=== PATIENT | female | born 1985 | race Caucasian/White ===

== ENCOUNTER 2018-03-26 11:53 | Emergency (ER) | payer MEDICAID ==
[~2018-03-26] VITALS: Ht 165.1 cm; Wt 100.0 kg
[~2018-03-26 11:53] MED LIST: CYCL-1 PO; DIPH-423 PO; DIPH25TA89 PO; KEN0.1O; PRED20TA PO; SUMA6VIA19 SQ
[2018-03-26] MEDS ORDERED: normal saline 1000ML IV soln IVB ONE (12:30)
[2018-03-26] MEDS ORDERED: ibuprofen tablet 400 MG TABLET PO ONE (12:30)
[2018-03-26 12:49] LABS: BASOPHILS % (AUTO) 0.7 % (0-1); EOSINOPHILS # (AUTO) 0.1 X10'3 (0-0.9); EOSINOPHILS % (AUTO) 0.9 % (0-6); HEMATOCRIT 41.7 % (35.0-45.0); HEMOGLOBIN 14.5 g/dl (12.0-16.0); LYMPHOCYTES # (AUTO) 1.6 X10'3 (1.1-4.8); MEAN CORPUSCULAR HGB CONC 34.6 % (33.0-36.5); MEAN CORPUSCULAR VOLUME 86.6 FL (78-98); MEAN PLATELET VOLUME 9.2 FL (7.4-10.4); MONOCYTES # (AUTO) 0.4 X10'3 (0-0.9); MONOCYTES % (AUTO) 7.6 % (2-12); NEUTROPHILS # (AUTO) 3.7 X10'3 (1.8-7.7); NEUTROPHILS % (AUTO) 63.8 % (42-75); PLATELET COUNT 211 X10'3 (140-440); RED BLOOD COUNT 4.82 X10'6 (4.20-5.60); RED CELL DISTRIBUTION WIDTH 12.7 % (11.5-14.5); WHITE BLOOD COUNT 5.8 X10'3 (4.5-11.0)
[2018-03-26 13:07] LABS: ALANINE AMINOTRANSFERASE 26 U/L (12-78); ALBUMIN 3.6 G/DL (3.4-5.0); ALBUMIN/GLOBULIN RATIO 1.2 (1.1-1.5); ALKALINE PHOSPHATASE 46 IU/L (46-116); ANION GAP 7 (8-16); ASPARTATE AMINO TRANSFERASE 17 U/L (10-37); BILIRUBIN,TOTAL 0.5 MG/DL (0.1-1.0); BLOOD UREA NITROGEN 12 MG/DL (7-18); BUN/CREATININE RATIO 15.6 (6.6-38.0); CHLORIDE 105 MMOL/L (99-107); CREATININE 0.77 MG/DL (0.40-0.90); GLUCOSE 89 MG/DL (70-104); POTASSIUM 3.9 MMOL/L (3.5-5.1); SODIUM 140 MMOL/L (135-145); TOTAL CARBON DIOXIDE 28.5 MMOL/L (24-32); TOTAL PROTEIN 6.7 G/DL (6.4-8.2); eGFR 87 ML/MIN
[2018-03-26 13:25] LABS: URINE HCG NEGATIVE (NEG)
[2018-03-26 13:28] LABS: CLARITY,URINE CLEAR (Clear); COLOR,URINE YELLOW (Yellow); GLUCOSE, URINE NEGATIVE (Neg); KETONES,URINE NEGATIVE (Neg); LEUKOCYTE ESTERASE ,URINE NEGATIVE (Neg); NITRITES, URINE NEGATIVE (Neg); OCCULT BLOOD,URINE MODERATE (Neg); PH,URINE 6.5 (4.8-8.0); PROTEIN,URINE NEGATIVE (Neg); UROBILINOGEN,URINE 0.2 E.U/dL (0.2-1.0)
[2018-03-26 13:34] LABS: BACTERIA,URINE NONE SEEN /HPF (Neg); MUCUS STRANDS FEW /LPF (Neg); RBC,URINE 0-2 /HPF (0-2); SQUAMOUS EPITHELIAL CELL,UR FEW /LPF (FEW); UA COLLECTION TYPE CLN CATCH MIDSTREAM; WBC,URINE NONE SEEN /HPF (0-4)
[2018-03-26] MEDS ORDERED: MEDR5TAB PO (14:05)
[2018-03-26 14:23] VITALS: BP 126/70
== END 2018-03-26 14:15 | disposition home or self-care (01) ==
LOC: ER 11:54
DX: N94.6 Dysmenorrhea, unspecified (principal); Z90.89 Acquired absence of other organs; Z56.0 Unemployment, unspecified; Z88.0 Allergy status to penicillin; Z79.899 Other long term (current) drug therapy
CPT/HCPCS: 36415; 76856; 80053; 81001; 81025; 85025; 86885; 86900; 86901; 99285; J7030

== ENCOUNTER 2018-04-23 15:59 | Emergency (ER) | payer MEDICAID ==
[~2018-04-23] VITALS: Ht 167.6 cm; Wt 105.2 kg
[~2018-04-23 15:59] MED LIST changes: +MEDR5TAB PO
[2018-04-23 16:30] LABS: BASOPHILS % (AUTO) 0.5 % (0-1); EOSINOPHILS # (AUTO) 0.1 X10'3 (0-0.9); EOSINOPHILS % (AUTO) 0.8 % (0-6); HEMATOCRIT 43.5 % (35.0-45.0); HEMOGLOBIN 15.1 g/dl (12.0-16.0); LYMPHOCYTES # (AUTO) 1.9 X10'3 (1.1-4.8); LYMPHOCYTES % (AUTO) 26.7 % (21-51); MEAN CORPUSCULAR HEMOGLOBIN 30.1 PG (27.0-31.0); MEAN CORPUSCULAR HGB CONC 34.7 % (33.0-36.5); MEAN CORPUSCULAR VOLUME 86.8 FL (78-98); MEAN PLATELET VOLUME 8.6 FL (7.4-10.4); MONOCYTES # (AUTO) 0.5 X10'3 (0-0.9); MONOCYTES % (AUTO) 7.4 % (2-12); NEUTROPHILS # (AUTO) 4.7 X10'3 (1.8-7.7); NEUTROPHILS % (AUTO) 64.6 % (42-75); PLATELET COUNT 230 X10'3 (140-440); RED BLOOD COUNT 5.01 X10'6 (4.20-5.60); RED CELL DISTRIBUTION WIDTH 13.3 % (11.5-14.5); WHITE BLOOD COUNT 7.3 X10'3 (4.5-11.0)
[2018-04-23 16:34] LABS: CLARITY,URINE SLIGHTLY CLOUDY (Clear); COLOR,URINE YELLOW (Yellow); GLUCOSE, URINE NEGATIVE (Neg); KETONES,URINE NEGATIVE (Neg); LEUKOCYTE ESTERASE ,URINE NEGATIVE (Neg); NITRITES, URINE NEGATIVE (Neg); OCCULT BLOOD,URINE LARGE (Neg); PH,URINE 5.5 (4.8-8.0); PROTEIN,URINE NEGATIVE (Neg); UROBILINOGEN,URINE 0.2 E.U/dL (0.2-1.0)
[2018-04-23 16:39] LABS: URINE HCG NEGATIVE (NEG)
[2018-04-23 16:42] LABS: PARTIAL THROMBOPLASTIN TIME 27 SECONDS (22-32); PROTHROMBIN TIME 10.3 SECONDS (9.0-12.0)
[2018-04-23 16:44] LABS: UA COLLECTION TYPE CLN CATCH MIDSTREAM
[2018-04-23 16:46] LABS: BACTERIA,URINE FEW /HPF (Neg); MUCUS STRANDS FEW /LPF (Neg); RBC,URINE 0-2 /HPF (0-2); SQUAMOUS EPITHELIAL CELL,UR MANY /LPF (FEW); WBC,URINE 0-4 /HPF (0-4)
[2018-04-23 16:49] LABS: ALANINE AMINOTRANSFERASE 26 U/L (12-78); ALBUMIN 3.9 G/DL (3.4-5.0); ALBUMIN/GLOBULIN RATIO 1.2 (1.1-1.5); ALKALINE PHOSPHATASE 42 IU/L (46-116); ANION GAP 7 (8-16); ASPARTATE AMINO TRANSFERASE 15 U/L (10-37); BILIRUBIN,TOTAL 0.7 MG/DL (0.1-1.0); BLOOD UREA NITROGEN 20 MG/DL (7-18); CALCIUM 8.8 MG/DL (8.5-10.1); CHLORIDE 106 MMOL/L (99-107); CREATININE 0.74 MG/DL (0.40-0.90); GLUCOSE 85 MG/DL (70-104); POTASSIUM 3.7 MMOL/L (3.5-5.1); SODIUM 141 MMOL/L (135-145); TOTAL CARBON DIOXIDE 28.2 MMOL/L (24-32); TOTAL PROTEIN 7.1 G/DL (6.4-8.2); eGFR > 90 ML/MIN
[2018-04-23 18:18] VITALS: BP 123/75
[2018-04-23] MEDS ORDERED: ONDA4TAB12 PO (19:14)
[2018-04-23] MEDS ORDERED: ondansetron 4mg rapidly disintigrating tab PO ONE (19:15)
== END 2018-04-23 19:26 | disposition home or self-care (01) ==
LOC: ER 16:00
DX: K29.00 Acute gastritis without bleeding (principal); R11.2 Nausea with vomiting, unspecified; E86.0 Dehydration; G89.29 Other chronic pain; Z90.49 Acquired absence of other specified parts of digestive tract; Z90.89 Acquired absence of other organs; Z56.0 Unemployment, unspecified; Z88.0 Allergy status to penicillin; Z79.899 Other long term (current) drug therapy
CPT/HCPCS: 36415; 71045; 80053; 81001; 81025; 84484; 85025; 85610; 85730; 93005; 99285

== ENCOUNTER 2018-09-21 15:58 | Emergency (ER) | payer MEDICAID ==
[~2018-09-21] VITALS: Ht 170.2 cm; Wt 104.0 kg
[~2018-09-21 15:58] MED LIST changes: +ONDA4TAB12 PO
[2018-09-21 16:11] VITALS: BP 162/92
[2018-09-21] MEDS ORDERED: ondansetron 4mg rapidly disintigrating tab PO ONE (16:15)
[2018-09-21] MEDS ORDERED: TAM75C PO (17:30)
[2018-09-21] MEDS ORDERED: ONDA4TAB6 PO (17:30)
== END 2018-09-21 17:41 | disposition home or self-care (01) ==
LOC: ER 15:59
DX: J11.1 Influenza due to unidentified influenza virus with other respiratory manifestations (principal); G89.29 Other chronic pain; Z90.49 Acquired absence of other specified parts of digestive tract; Z98.890 Other specified postprocedural states; Z88.0 Allergy status to penicillin; Z88.8 Allergy status to other drugs, medicaments and biological substances; Z79.899 Other long term (current) drug therapy
CPT/HCPCS: 87502; 87503; 93005; 99284

== ENCOUNTER 2018-12-14 11:18 | Emergency (ER) | payer MEDICAID ==
[~2018-12-14] VITALS: Ht 165.1 cm; Wt 105.0 kg
[~2018-12-14 11:18] MED LIST changes: +ONDA4TAB6 PO
[2018-12-14 11:19] VITALS: BP 136/90
--- NOTE | 2018-12-14 11:31 | NUR ---
pt states my right side of face feels numb.vision sensitive to light, and seeing squiggly lines
[2018-12-14] MEDS ORDERED: ATEN-169 PO (11:45)
[2018-12-14] MEDS ORDERED: atenolol 25mg tablet PO ONE (11:45)
[2018-12-14] MEDS ORDERED: ketorolac trometh. 30mg/ml inj. IM ONE (11:45)
== END 2018-12-14 12:16 | disposition home or self-care (01) ==
LOC: ER 11:18
DX: G43.909 Migraine, unspecified, not intractable, without status migrainosus (principal); I10 Essential (primary) hypertension; G89.29 Other chronic pain; Z88.0 Allergy status to penicillin; Z88.8 Allergy status to other drugs, medicaments and biological substances; Z79.899 Other long term (current) drug therapy; Z90.49 Acquired absence of other specified parts of digestive tract; Z90.89 Acquired absence of other organs
CPT/HCPCS: 96372; 99283; J1885

== ENCOUNTER 2023-02-08 17:03 | Emergency (ER) | payer MEDICAID ==
[~2023-02-08] VITALS: Ht 172.7 cm; Wt 104.5 kg
[~2023-02-08 17:03] MED LIST changes: +SUMA6VIA17 SQ; -SUMA6VIA19 SQ
[2023-02-08 17:07] VITALS: BP 146/100
[2023-02-08] MEDS ORDERED: GUAI400T92 PO (18:39)
[2023-02-08] MEDS ORDERED: AZIT250T2 PO (18:39)
[2023-02-08] MEDS ORDERED: CIPR2.5D21 LEFTEYE (18:39)
[2023-02-08] MEDS ORDERED: ONDA4TAB12 PO (18:39)
== END 2023-02-08 18:56 | disposition home or self-care (01) ==
LOC: ER 17:03
DX: K52.9 Noninfective gastroenteritis and colitis, unspecified (principal); J06.9 Acute upper respiratory infection, unspecified; J32.9 Chronic sinusitis, unspecified; H10.89 Other conjunctivitis; H66.90 Otitis media, unspecified, unspecified ear; R05.9 Cough, unspecified; R11.2 Nausea with vomiting, unspecified; G43.909 Migraine, unspecified, not intractable, without status migrainosus; Z88.0 Allergy status to penicillin; Z88.8 Allergy status to other drugs, medicaments and biological substances
CPT/HCPCS: 99283

== ENCOUNTER 2023-05-25 17:41 | Emergency (ER) | payer MEDICAID ==
[~2023-05-25] VITALS: Ht 165.1 cm; Wt 90.0 kg
[~2023-05-25 17:41] MED LIST changes: +GUAI400T92 PO
[2023-05-25 18:26] VITALS: TEMP 97.7
[2023-05-25 18:58] LABS: BASOPHILS # (AUTO) 0.1 X10'3 (0-0.2); BASOPHILS % (AUTO) 0.7 % (0-1); EOSINOPHILS % (AUTO) 0.1 % (0-6); HEMATOCRIT 44.7 % (35.0-45.0); HEMOGLOBIN 15.6 g/dl (12.0-16.0); LYMPHOCYTES % (AUTO) 19.9 % (21-51); MEAN CORPUSCULAR HEMOGLOBIN 29.4 PG (27.0-31.0); MEAN CORPUSCULAR HGB CONC 34.9 g/dL (33.0-36.5); MEAN CORPUSCULAR VOLUME 84.3 FL (78-98); MEAN PLATELET VOLUME 8.9 FL (7.4-10.4); MONOCYTES % (AUTO) 9.7 % (2-12); NEUTROPHILS # (AUTO) 7.1 X10'3 (1.8-7.7); NEUTROPHILS % (AUTO) 69.6 % (42-75); PLATELET COUNT 273 X10'3 (140-440); RED CELL DISTRIBUTION WIDTH 13.4 % (11.5-14.5); WHITE BLOOD COUNT 10.2 X10'3 (4.5-11.0)
[2023-05-25 19:07] LABS: ALANINE AMINOTRANSFERASE 37 U/L (12-78); ALBUMIN 4.3 G/DL (3.4-5.0); ALBUMIN/GLOBULIN RATIO 1.4 (1.1-1.5); ALKALINE PHOSPHATASE 51 IU/L (46-116); ANION GAP 10 (8-16); ASPARTATE AMINO TRANSFERASE 55 U/L (10-37); BILIRUBIN,TOTAL 1.2 MG/DL (0.1-1.0); BLOOD UREA NITROGEN 11 MG/DL (7-18); BUN/CREATININE RATIO 15.9 (10.0-20.0); CALCIUM 9.5 MG/DL (8.5-10.1); CHLORIDE 99 MMOL/L (99-107); CREATININE 0.69 MG/DL (0.40-0.90); GLUCOSE 94 MG/DL (70-104); LIPASE < 50 U/L (73-393); SODIUM 137 MMOL/L (135-145); TOTAL CARBON DIOXIDE 27.8 MMOL/L (24-32); TOTAL PROTEIN 7.4 G/DL (6.4-8.2); eCRCL 100 ML/MIN; eGFR > 90 ML/MIN
[2023-05-25 19:16] LABS: URINE HCG NEGATIVE (NEG)
[2023-05-25 19:17] LABS: BILIRUBIN,URINE SMALL (Neg); CLARITY,URINE SLIGHTLY CLOUDY (Clear); COLOR,URINE YELLOW (Yellow); GLUCOSE, URINE NEGATIVE (Neg); KETONES,URINE >=80 mg/dl (Neg); LEUKOCYTE ESTERASE ,URINE NEGATIVE (Neg); OCCULT BLOOD,URINE TRACE-INTACT (Neg); PROTEIN,URINE 30 mg/dl (Neg); UROBILINOGEN,URINE 0.2 E.U/dL (0.2-1.0)
[2023-05-25 19:18] LABS: NITRITES, URINE NEGATIVE (Neg); UA COLLECTION TYPE CLN CATCH MIDSTREAM
[2023-05-25 19:43] LABS: BACTERIA,URINE 2+ /HPF (Neg); FINE GRANULAR CAST 0-3 /LPF (NEGATIVE); HYALINE CASTS 0-3 /LPF (NEGATIVE); MUCUS STRANDS FEW /LPF (Neg); SQUAMOUS EPITHELIAL CELL,UR MANY /LPF (FEW); WBC,URINE 0-4 /HPF (0-4)
[2023-05-25] MEDS ORDERED: potassium Cl 20 mEq SR tablet PO STA (21:22)
--- NOTE | 2023-05-25 21:45 | NUR ---
RELIEVING RN FOR BREAK, PT C/O FEELING NAUSEA, UNABLE TO TOLERATE PO MEDS AT THIS TIME, Roxy CÁRDENAS, PROVIDER, IS AT BEDSIDE,
[2023-05-25] MEDS ORDERED: ketorolac trometh. 30mg/ml inj. IV ONE (21:50)
[2023-05-25] MEDS ORDERED: metoclopramide 5 mg/ml inj IV ONE (21:50)
[2023-05-25] MEDS ORDERED: ONDA4TAB12 PO (22:33)
[2023-05-25] MEDS ORDERED: POTASSIUM BICARB 20meq eff tab 20 MEQ TABLET.EFF PO ONE (22:40)
[2023-05-25 23:21] VITALS: BP 130/82; PULSE 86; RESP 17; O2SAT 100
== END 2023-05-25 23:28 | disposition home or self-care (01) ==
LOC: ER 17:42
DX: R11.10 Vomiting, unspecified (principal); E87.6 Hypokalemia; G43.909 Migraine, unspecified, not intractable, without status migrainosus; G89.29 Other chronic pain; Z88.0 Allergy status to penicillin; Z88.8 Allergy status to other drugs, medicaments and biological substances; Z79.899 Other long term (current) drug therapy
CPT/HCPCS: 36415; 80053; 81001; 81025; 83690; 85025; 96374; 96375; 99284; J1885; J2765